=== PATIENT | female | born 1970 | race Two or more races ===

== ENCOUNTER 2022-02-19 09:34 | Emergency (ER) | payer OTHER ==
[~2022-02-19] VITALS: Ht 170.2 cm; Wt 79.4 kg
[~2022-02-19 09:34] MED LIST: LEVSIN0.125 MG PO; NEURONTIN300 MG; PLAQUENIL; SYMBALTA; ZANTAC150 MG PO
[2022-02-19] MEDS ORDERED: ATENOLOL100 MG PO (09:58)
[2022-02-19] MEDS ORDERED: LOSARTAN POTAS100 MG PO (09:58)
== END 2022-02-19 13:30 | disposition home or self-care (01) ==
LOC: ER 09:34
DX: M25.572 Pain in left ankle and joints of left foot (principal); M79.7 Fibromyalgia; E11.9 Type 2 diabetes mellitus without complications; I10 Essential (primary) hypertension; Z88.8 Allergy status to other drugs, medicaments and biological substances